=== PATIENT | female | born 1965 | race Caucasian/White ===

== ENCOUNTER 2018-03-24 15:25 | Emergency (ER) | payer SELFPAY ==
[~2018-03-24] VITALS: Ht 157.5 cm; Wt 78.5 kg
[2018-03-24 15:34] VITALS: BP 196/102
--- NOTE | 2018-03-24 15:35 | NUR ---
52 Y/O F PRESENTS TO THE ED W/C/O "I HAVE HIGH BLOOD PRESSURE." PT STATES SHE "HAD HIGH BLOOD PRESSURE YESTERDAY BECAUSE I FELT STRESSED AT WORK AND I CHECKED." PT ALSO STATES SHE HAS BEEN FEELING "DIZZY" AND HAS A HEADACHE TODAY IN THE FRONTAL LOBES. NO NYSTAGMUS NOTED. PT DENIES N/V/D; SKIN IS INTACT, PINK/WARM/DRY; AAOX4, PERRL, WITH EVEN AND STEADY GAIT; LUNGS CLEAR BL, BREATHING UNLABORED; HR EVEN AND REGULAR, BL PERIPHERAL PULSES PRESENT; BS ACTIVE X4, NO TENDERNESS TO PALPATION, NO HEPATOSPLENOMEGALLY PALPATED, RESONANT TO PERCUSSION; PT DENIES ANY FEVER, CP, SOB, OR COUGH AT THIS TIME; PT STATES 8/10 PAIN AT THIS TIME IN FRONTAL LOBES THAT FEELS LIKE THROBBING; VSS; PATIENT POSITIONED FOR COMFORT; HOB ELEVATED; BEDRAILS UP X2; BED DOWN.
--- NOTE | 2018-03-24 15:40 | NUR ---
PT AMBULATS TO BED [address] POSADA NOTIFIED OF PTS HIGH BP. NO NEW ORDERS RECEIVED.
--- NOTE | 2018-03-24 15:40 | NUR ---
B/P IS 176/105 ON THE MONITOR PULSE 71, DR. POSADA MADE AWARE
[2018-03-24] MEDS ORDERED: cloNIDine 0.1 MG TAB PO ONE (16:00)
[2018-03-24] MEDS ORDERED: MECLIZINE 25 MG TAB PO ONE (16:00)
--- NOTE | 2018-03-24 16:31 | NUR ---
B/P IS 157/79 PULSE 65 ON MONITOR. NO S/S OF DISTRESS NOTED. RR EVEN/UNLABORED.
[2018-03-24 18:02] VITALS: BP 147/75
--- NOTE | 2018-03-24 18:02 | NUR ---
Patient discharged with v/s stable. Written and verbal after care instructions given and explained. Patient alert, oriented and verbalized understanding of instructions. Ambulatory with steady gait. All questions addressed prior to discharge. ID band removed. Patient advised to follow up with PMD. Rx of VISTARIL, LISINOPRIL given. Patient educated on indication of medication including possible reaction and side effects. Opportunity to ask questions provided and answered.
== END 2018-03-24 18:02 | disposition home or self-care (01) ==
LOC: MED 15:25
DX: I10 Essential (primary) hypertension (principal); F43.9 Reaction to severe stress, unspecified; R42 Dizziness and giddiness
CPT/HCPCS: 99283; J8597